=== PATIENT | male | born 1995 | race Caucasian/White ===

== ENCOUNTER 2020-10-06 19:43 | Emergency (ER) | payer OTHER ==
[~2020-10-06] VITALS: Ht 182.9 cm; Wt 84.2 kg
--- NOTE | 2020-10-06 21:55 | ECGEPIP ---
[facility] - ED Test Date: 2020-10-06 Pat Name: ZULEIKA ESPINOZA Department: Room: - Gender: Male [employer]: luz marina : 1995 Requested By: MAME Yoon PA-C Order Number: [id number] Reading MD: Ricki Nguyen Measurements Intervals [place] Rate: 56 P: 58 [place]: 198 QRS: 75 QRSD: 102 T: 42 QT: 444 QTc: 428 Interpretive Statements Sinus bradycardia with sinus arrhythmia BENIGN EARLY REPOLARIZATION NO PRIORS FOR COMPARISON Electronically Signed on 10-06-2020 21:54:41 EDT by Ricki Nguyen
[2020-10-06 22:38] LABS: BASO % 0.4 % (0.0-1.0); EOS # 0.1 10^3/uL (0.0-0.5); EOS % 1.6 % (0.0-3.0); HEMATOCRIT 41.8 % (42.0-52.0); HEMOGLOBIN 14.3 g/dl (13.5-17.5); LYMPH % 37.5 % (24.0-44.0); MEAN CORPUSCULAR HEMOGLOBIN 29.1 pg (27.0-33.0); MEAN CORPUSCULAR HGB CONC 34.2 g/dl (32.0-36.5); MONO # 0.5 10^3/uL (0.0-0.8); MONO % 6.7 % (2.0-8.0); NEUTROPHILS # 4.3 10^3/uL (1.5-8.5); NEUTROPHILS % 53.4 % (36.0-66.0); PLATELET COUNT, AUTOMATED 200 10^3/uL (150-450); RED BLOOD COUNT 4.92 10^6/uL (4.30-6.10)
[2020-10-06 23:12] LABS: ALBUMIN 4.1 GM/DL (3.2-5.2); ALT/SGPT 33 U/L (12-78); BILIRUBIN,DIRECT 0.1 MG/DL (0.0-0.2); BILIRUBIN,TOTAL 0.4 MG/DL (0.2-1.0); BLOOD UREA NITROGEN 17 MG/DL (7-18); CALCIUM LEVEL 8.9 MG/DL (8.5-10.1); CARBON DIOXIDE LEVEL 28 MEQ/L (21-32); CHLORIDE LEVEL 108 MEQ/L (98-107); CK-MB VALUE MASS < 1.0 NG/ML (<3.6); CPK CREATINE PHOSPHOKINASE 290 U/L (39-308); CREATININE FOR GFR 1.04 MG/DL (0.70-1.30); GLOMERULAR FILTRATION RATE > 60.0 (>60); GLUCOSE, FASTING 82 MG/DL (70-100); LIPASE 62 U/L (73-393); MB/CK RELATIVE INDEX 0.34 (< OR =4); POTASSIUM SERUM 3.9 MEQ/L (3.5-5.1); SODIUM LEVEL 141 MEQ/L (136-145); TOTAL PROTEIN 6.8 GM/DL (6.4-8.2); TROPONIN I < 0.02 NG/ML (< 0.10)
[2020-10-07] MEDS ORDERED: ACETAMINOPHEN 500 MG TAB PO ONE
[2020-10-07] MEDS ORDERED: NS 1,000 ML IV ONE
[2020-10-07 00:29] VITALS: BP 108/67
[2020-10-07 00:46] LABS: APPEARANCE, URINE CLEAR (CLEAR); BACTERIA, URINE AUTO NEGATIVE (NEGATIVE); BILIRUBIN, URINE AUTO NEGATIVE (NEGATIVE); BLOOD, URINE BLOOD NEGATIVE (NEGATIVE); COLOR, URINE YELLOW (YELLOW); GLUCOSE, URINE (UA) AUTO NEGATIVE (NEGATIVE); KETONE, URINE AUTO NEGATIVE (NEGATIVE); LEUKOCYTE ESTERASE, URINE AUTO NEGATIVE (NEGATIVE); NITRITE, URINE AUTO NEGATIVE (NEGATIVE); PROTEIN, URINE AUTO NEGATIVE (NEGATIVE); RBC, URINE AUTO 3 /HPF (0-3); SPECIFIC GRAVITY URINE AUTO 1.015 (1.002-1.035); SQUAMOUS EPITHELIAL CELL UR AU 0 /HPF (0-6); UROBILINOGEN, URINE AUTO 0.2 mg/dL (0.0-2.0); WBC, URINE AUTO 0 /HPF (0-3)
--- NOTE | 2020-10-07 00:55 | REPVR ---
PROCEDURE INFORMATION: Exam: CT Head Without Contrast Exam date and time: 10/06/2020 11:57 PM Age: 24 years old Clinical indication: Dizziness; Additional info: Syncope TECHNIQUE: Imaging protocol: Computed tomography of the head without contrast. Radiation optimization: All CT scans at this facility use at least one of these dose optimization techniques: automated exposure control; mA and/or kV adjustment per patient size (includes targeted exams where dose is matched to clinical indication); or iterative reconstruction. COMPARISON: No relevant prior studies available. FINDINGS: Brain: Normal. No hemorrhage. Unremarkable white matter. No mass effect. Cerebral ventricles: No ventriculomegaly. Paranasal sinuses: Visualized sinuses are unremarkable. No fluid levels. Mastoid air cells: Visualized mastoid air cells are well aerated. Bones/joints: Unremarkable. No acute fracture. Soft tissues: Unremarkable. IMPRESSION: No acute intracranial abnormality. Electronically signed by: Guero Camarillo On 10/07/2020 00:55:32 AM
--- NOTE | 2020-10-07 01:12 | REPVR ---
PROCEDURE INFORMATION: Exam: XR Chest Exam date and time: 10/07/2020 1:02 AM Age: 24 years old Clinical indication: Other: Chest pain/sob; Additional info: Chest pain/ SOB TECHNIQUE: Imaging protocol: XR of the chest. Views: 2 views. COMPARISON: No relevant prior studies available. FINDINGS: Lungs: Unremarkable. No consolidation. Pleural spaces: Unremarkable. No pleural effusion. No pneumothorax. Heart/Mediastinum: Unremarkable. No cardiomegaly. Bones/joints: Unremarkable. IMPRESSION: No acute findings. Electronically signed by: Guero Camarillo On 10/07/2020 01:12:25 AM
== END 2020-10-07 02:22 | disposition home or self-care (01) ==
LOC: M ED 19:43
DX: T59.811A Toxic effect of smoke, accidental (unintentional), initial encounter (principal); J70.5 Respiratory conditions due to smoke inhalation; J98.01 Acute bronchospasm; R00.1 Bradycardia, unspecified; R07.89 Other chest pain; R05 Cough; R55 Syncope and collapse; R11.10 Vomiting, unspecified; F17.200 Nicotine dependence, unspecified, uncomplicated

== ENCOUNTER → 2020-12-28 | Outpatient (CLI) | payer OTHER ==
--- NOTE | 2020-12-28 15:48 | PFTRPT ---
Height: 74.00 Inches Weight: 180.00 Lbs BSA: 2.08 Diagnosis: COUGH DATE: 12/28/2020 ORDERING PHYSICIAN: Mikayla Browning Pre and post bronchodilator studies have excellent technical quality. Forced vital capacity is normal. FEV1 is in proportion. Obstructive index is therefore normal. Expiratory limit of the flow-volume loop is normal. No significant bronchodilator response is identified. Total lung capacity is normal. Residual volume is in proportion. Diffusing capacity is normal. No hemoglobin available for correction. Airway resistance and conductance are normal. IMPRESSION: Normal study. MTDD
== END ==
LOC: M CARPUL 15:08
DX: R06.02 Shortness of breath (principal); R05 Cough